=== PATIENT | female | born 1945 | race American Indian/Alaskan Native ===

== ENCOUNTER 2016-09-01 17:17 | Inpatient (IN) | payer MEDICARE, OTHER ==
[2016-09-01] MEDS ORDERED: Sodium Chloride 0.9% 500 ML IV ONE (17:54)
[2016-09-01] MEDS ORDERED: Sodium Chloride 0.9% 1,000 ML IV ONE (17:54)
[2016-09-01] MEDS ORDERED: Iohexol 240 (50 ml) PO STA (17:54)
--- NOTE | 2016-09-01 17:54 | C.PDOC ---
History Of Present Illness <Layla De La Rosa - Last Filed: 09/01/16 18:53> <Ventura Benavides - Last Filed: 09/01/16 21:48> 71 y/o female presents to the ED with complains of abdominal bloating and cramping x1 week, worsening. Pt also reports nausea, vomiting, diarrhea, last diarrhea days ago (worse with eating) and decreased urination due to low water intake. Denies fever, chills, or any other complaints. PSHx hysterectomy. ABD BLOATING, CRAMPING X 1 WEEK. WORSENING. +NVD, LAST DIARRHEA DAYS AGO. WORSE W EATING. NO FEVER. PSH HYST. DECR URINATING DUE TO LOW WATER INTAKE EXAM MILD DIST NONTOXIC HEENT MM DRY ABD SOFT NT ND NO R/G REMAINDER NEG (Layla De La Rosa) History Per: Patient History/Exam Limitations: no limitations Onset/Duration Of Symptoms: Days Current Symptoms Are (Timing): Still Present Severity: Moderate Location Of Pain/Discomfort: Diffuse Radiation Of Pain To:: None Quality Of Discomfort: Cramping Associated Symptoms: Nausea, Vomiting, Diarrhea. denies: Fever, Chest Pain Exacerbating Factors: Food Alleviating Factors: None Recent travel outside of the [place]: No <Layla De La Rosa - Last Filed: 09/01/16 18:53> <Sandra Benavidesradha - Last Filed: 09/01/16 21:48> Time Seen by Provider: 09/01/16 17:40 Chief Complaint (Nursing): Abdominal Pain Past Medical History Reviewed: Historical Data, Nursing Documentation, Vital Signs Family History: States: Unknown Family Hx - Social History Hx Tobacco Use: No Hx Alcohol Use: No Hx Substance Use: No - Immunization History Hx Tetanus Toxoid Vaccination: No Hx Influenza Vaccination: No Hx Pneumococcal Vaccination: No <Layla De La Rosa - Last Filed: 09/01/16 18:53> Review Of Systems Except As Marked, All Systems Reviewed And Found Negative. Constitutional: Negative for: Fever, Chills Gastrointestinal: Positive for: Nausea, Vomiting, Abdominal Pain, Diarrhea <Layla De La Rosa - Last Filed: 09/01/16 18:53> Physical Exam - Physical Exam Appears: Non-toxic, In Acute Distress (mild) Skin: Warm, Dry, No Rash Head: Atraumatic, Normacephalic Oral Mucosa: Dry Neck: Normal, Normal ROM, Supple Chest: Symmetrical Cardiovascular: Rhythm Regular, No Murmur Respiratory: Normal Breath Sounds, No Rales, No Rhonchi, No Wheezing Gastrointestinal/Abdominal: Normal Exam, Soft, No Tenderness, No Distention, No Guarding, No Rebound Extremity: Normal ROM Extremity: Bilateral: Atraumatic Neurological/Psych: Oriented x3, Normal Speech <Layla De La Rosa - Last Filed: 09/01/16 18:53> ED Course And Treatment - Laboratory Results Result Diagrams: 09/01/16 18:11 09/01/16 18:11 O2 Sat by Pulse Oximetry: 98 (room air) Pulse Ox Interpretation: Normal <RjLayla - Last Filed: 09/01/16 18:53> - Laboratory Results Result Diagrams: 09/01/16 18:11 09/01/16 20:58 Pulse Ox Interpretation: Normal <Ventura Benavides - Last Filed: 09/01/16 21:48> Medical Decision Making <RjLayla - Last Filed: 09/01/16 18:53> <Ventura Benavides - Last Filed: 09/01/16 21:48> Medical Decision Making: Plan: * CT abdomen * labs * UA * IV fluids * edvin story (Layla De La Rosa) ED OBSERVATION Date of observation admission: 09/01/16 Time of observation admission: 17:45 <Layla De La Rosa - Last Filed: 09/01/16 18:53> <Ventura Benavides - Last Filed: 09/01/16 21:48> - Observation admission statement Patient is being placed in observation because:: ABD PAIN, DEHYDRATION (Layla De La Rosa) - Goals of Observation Goals of observation are:: NEG ACUTE ABD; SX IMPROVE (Layla De La Rosa) - Progress Note Progress Note: 09/01/16 19:[address] FRANCIS CT, DISPO 09/01/16 18:53 (Layla De La Rosa) Disposition <Layla De La Rosa - Last Filed: 09/01/16 18:53> Discussed With : Breonna Hazel Comment: accepted the pt on his service and took over the care at 9:47 PM Counseled Patient/Family Regarding: Studies Performed, Diagnosis - Disposition Disposition Time: 19:00 <Ventura Benavides - Last Filed: 09/01/16 21:48> - Disposition Disposition: HOSPITALIZED Condition: FAIR - Clinical Impression Clinical Impression: Abdominal pain, SBO (small bowel obstruction), UTI (urinary tract infection) - Scribe Statement The provider has reviewed the documentation as recorded by the Scribe <Layla De La Rosa - Last Filed: 09/01/16 18:53> <Ventura Benavides - Last Filed: 09/01/16 21:48> - Scribe Statement Ricardo Wilson (Layla De La Rosa) Provider Attestation: All medical record entries made by the Scribe were at my direction and personally dictated by me. I have reviewed the chart and agree that the record accurately reflects my personal performance of the history, physical exam, medical decision making, and the department course for this patient. I have also personally directed, reviewed, and agree with the discharge instructions and disposition. (Layla De La Rosa) Decision To Admit <Layla De La Rosa - Last Filed: 09/01/16 18:53> - Pt Status Changed To: Hospital Disposition Of: Inpatient - Admit Certification Admit to Inpatient:: After my assessment, the patient will require hospitalization for at least two midnights. This is because of the severity of symptoms shown, intensity of services needed, and/or the medical risk in this patient being treated as an outpatient. - InPatient: Physician Admission Certification:: After my assessment, the patient will require hospitalization for at least two midnights. This is because of the severity of symptoms shown, intensity of services needed, and/or the medical risk in this patient being treated as an outpatient. - . Bed Request Type: Regular Admitting Physician: Breonna Hazel <Ventura Benavides - Last Filed: 09/01/16 21:48> - . Patient Diagnosis: SBO (small bowel obstruction), UTI (urinary tract infection), Abdominal pain
[2016-09-01] MEDS ORDERED: Sodium Chloride 0.9% 1,000 ML ONE ×2 (18:01→21:40)
[2016-09-01] MEDS ORDERED: Iohexol 240 (50 ml) ONE (18:01)
[2016-09-01 18:21] LABS: BASO % 0.5 % (0.0-2.0); EOS % 0.1 % (0.0-4.0); LYMPH % 18.9 % (20.0-40.0); MEAN CELL VOLUME 98.1 fL (81.0-99.0); MEAN CORPUSCULAR HEMOGLOBIN 33.4 pg (27.0-31.0); MEAN CORPUSCULAR HGB CONC 34.1 g/dL (33.0-37.0); MEAN PLATELET VOLUME 8.4 fL (7.2-11.7); MONO # 0.5 K/uL (0.0-0.8); MONO % 9.3 % (0.0-10.0); RED CELL DISTRIBUTION WIDTH 12.6 % (11.5-14.5); WHITE BLOOD COUNT 5.5 K/uL (4.8-10.8)
[2016-09-01 18:23] LABS: POTASSIUM 3.8 mmol/L (3.6-5.2)
[2016-09-01 18:26] LABS: CALCIUM 9.7 mg/dl (8.6-10.4)
[2016-09-01] MEDS ORDERED: Iodixanol 320 MG/ML 100 ML BOTTLE IV ONE (18:50)
[2016-09-01 21:16] LABS: POTASSIUM 3.9 mmol/L (3.6-5.2)
[2016-09-01 21:19] LABS: BILIRUBIN,TOTAL 0.9 mg/dL (0.2-1.3); TOTAL PROTEIN 7.2 g/dL (6.3-8.3)
[2016-09-01 21:32] LABS: RBC URINE 81 /hpf (0-3); URINE BACTERIA FEW (<OCC); URINE BILIRUBIN NEGATIVE (NEGATIVE); URINE BLOOD 3+ (NEGATIVE); URINE COLOR Yellow (YELLOW); URINE GLUCOSE (UA) NORMAL (Normal); URINE KETONE TRACE mg/dL (NEGATIVE); URINE LEUKOCYTE ESTERASE 1+ Leu/uL (Negative); URINE PROTEIN 2+ mg/dL (NEGATIVE); WBC URINE 24 /hpf (0-5)
[2016-09-01] MEDS ORDERED: Piperacillin/Tazobact 3.375 gm 100 ML IVPB STA (21:34)
[2016-09-01] MEDS ORDERED: Piperacillin/Tazobact 3.375 gm 100 ML IVPB ONE (21:40)
--- NOTE | 2016-09-01 22:56 | CP.PCM.CON ---
<Cr Martin - Last Filed: 09/01/16 22:52> History of Present Illness - History of Present Illness History of Present Illness: General Surgery Consult note for Dr. Moses CC: Abdominal pain for a week This is a 71F with no significant PMH and a PSH of an open hysterectomy for unkown reasons. She presents to the ED due to abdominal pain that she has been experiencing for over a week now. She reports that last week she had one episode of emesis that was red. She reports no episodes of emesis since then as well as no bowel movements since that time. She cannot recall the last time she passed flatus. She denies any past episodes similar to this. She denies fevers chills chest pain shortness of breath or any other alarming symptoms PMH: Stress incontinence PSH: Open hysterectomy All:NKDA Social: Denies etoh, tobacco, drugs Review of Systems - Constitutional Constitutional: Chills. absent: Anorexia, Fever - EENT Eyes: absent: Blind Spots, Blurred Vision Ears: absent: Ear Discharge, Tinnitus Nose/Mouth/Throat: absent: Nasal Discharge - Cardiovascular Cardiovascular: absent: Chest Pain, Dyspnea, Palpitations - Respiratory Respiratory: absent: Cough, Dyspnea - Gastrointestinal Gastrointestinal: Belching, Bloating, Change in Bowel Habits, Nausea. absent: Diarrhea, Vomiting - Genitourinary Genitourinary: absent: Dysuria - Integumentary Integumentary: absent: Rash, Skin Pain Past Patient History - Infectious Disease Hx of Infectious Diseases: None - Past Social History Smoking Status: Never Smoked - PSYCHIATRIC Hx Substance Use: No - SURGICAL HISTORY Hx Joint Replacement: Yes (right knee) - ANESTHESIA Hx Anesthesia: Yes Hx Anesthesia Reactions: No Hx Malignant Hyperthermia: No Meds Allergies/Adverse Reactions: Allergies Allergy/AdvReac Type Severity Reaction Status Date / Time No Known Allergies Allergy Verified 09/01/16 17:26 Physical Exam - Constitutional Appears: Non-toxic, No Acute Distress - Head Exam Head Exam: ATRAUMATIC, NORMOCEPHALIC - Eye Exam Eye Exam: EOMI, Normal appearance - ENT Exam ENT Exam: Mucous Membranes Moist - Respiratory Exam Respiratory Exam: NORMAL BREATHING PATTERN - Cardiovascular Exam Cardiovascular Exam: REGULAR RHYTHM - GI/Abdominal Exam GI & Abdominal Exam: Distended, Hernia, Tenderness. absent: Firm, Guarding, Rigid - Extremities Exam Extremities exam: Positive for: normal inspection - Neurological Exam Neurological exam: Alert - Psychiatric Exam Psychiatric exam: Normal Affect, Normal Mood - Skin Skin Exam: Dry, Normal Color Results - Vital Signs Recent Vital Signs: Last Vital Signs Temp 98 F 09/01/16 17:23 Pulse 98 H 09/01/16 17:23 Resp 20 09/01/16 17:23 BP 127/75 09/01/16 17:23 Pulse Ox 98 09/01/16 18:53 - Labs Result Diagrams: 09/01/16 18:11 09/01/16 20:58 - Imaging and Cardiology CT scan - abdomen Status: Image reviewed by me, Report reviewed by me Assessment & Plan - Assessment and Plan (Free Text) Assessment: This is a 71F with a small bowel obstruction NPO IVF NGT to suction Serial abdominal exams Continue medical management per primary team D/W Dr. Josué Martin PGY-6 <Jesse Moses B - Last Filed: 09/05/16 19:06> Results - Vital Signs Recent Vital Signs: Last Vital Signs Temp 98.5 F 09/05/16 07:30 Pulse 74 09/05/16 08:00 Resp 18 09/05/16 07:30 BP 147/83 09/05/16 07:30 Pulse Ox 98 09/05/16 07:30 - Labs Result Diagrams: 09/05/16 14:25 09/05/16 14:25 Labs: Laboratory Results - last 24 hr 09/05/16 09/05/16 14:25 14:25 WBC 4.5 L RBC 4.21 Hgb 14.2 Hct 41.3 MCV 98.1 MCH 33.8 H MCHC 34.4 RDW 13.1 Plt Count 244 MPV 8.6 Neut % (Auto) 76.0 H Lymph % (Auto) 13.6 L [place] % (Auto) 8.9 Eos % (Auto) 1.2 Baso % (Auto) 0.3 Neut # 3.4 Lymph # 0.6 L [place] # 0.4 Eos # 0.1 Baso # 0.0 Sodium 133 Potassium 3.9 Chloride 98 Carbon Dioxide 26 Anion Gap 13 BUN 3 L Creatinine 1.1 Est GFR ( Amer) 59 Est GFR (Non-Af Amer) 49 Random Glucose 125 H Calcium 8.9 Total Bilirubin 0.8 AST 23 ALT 23 Alkaline Phosphatase 56 Total Protein 7.3 Albumin 3.5 Globulin 3.8 Albumin/Globulin Ratio 0.9 L Attending/Attestation - Attestation I have personally seen and examined this patient.: Yes I have fully participated in the care of the patient.: Yes I have reviewed all pertinent clinical information: Yes Notes (Text): 09/05/16 19:03 Pt was seen and examined at bedside on 09/02/16 Agree with above note and assessment Pt with PSBO due to Adhesions Serial Abdominal exam AXR in am Plan d.w pt in detail. C.w current mx
[2016-09-01] MEDS: Sodium Chloride 0.9% 1,000 ML IV SCH (23:11)
[2016-09-01] MEDS ORDERED: Pantoprazole 80 MG in Sodium Chloride 0.9% 100 ML IVP SCH (23:15)
--- NOTE | 2016-09-02 08:28 | CT ---
PROCEDURE: CT Abdomen and Pelvis with contrast HISTORY: abd pain VOMITING DIARRHEA COMPARISON: None. TECHNIQUE: Contrast dose: 100 mL Visipaque 320 Radiation dose: Total exam DLP = 328.71 mGy-cm. This CT exam was performed using one or more of the following dose reduction techniques: Automated exposure control, adjustment of the mA and/or kV according to patient size, and/or use of iterative reconstruction technique. FINDINGS: LOWER THORAX: Unremarkable. LIVER: Diffusely diminished attenuation consistent with fatty infiltration. Several rounded low-attenuation masses are noted, largest in the posterior right hepatic lobe, subcapsular, measuring 1.5 cm. Nonspecific. Possible cyst. No biliary dilatation. GALLBLADDER AND BILE DUCTS: Cholelithiasis. No mural thickening. Minimal pericholecystic fluid, nonspecific. This may reflect mild ascites. PANCREAS: Unremarkable. No gross lesion or ductal dilatation. SPLEEN: Unremarkable. ADRENALS: Unremarkable. No mass. KIDNEYS AND URETERS: Atrophic left kidney with left hydronephrosis and hydroureter. Etiology of ureteral obstruction is unclear from this examination. Consider mass or stricture. Multiple low-density right renal masses, likely cysts. The largest 2.7 cm in upper pole. Two lower pole right renal nonobstructing calculi, 5 mm and 7 mm, respectively. VASCULATURE: Unremarkable. No aortic aneurysm. BOWEL: Mechanical small-bowel obstruction. High-grade. Point of obstruction not clearly identified. Collapsed distal small bowel noted. Colon is collapsed. APPENDIX: Not identified. No secondary findings. PERITONEUM: Mild ascites. LYMPH NODES: Unremarkable. No enlarged lymph nodes. BLADDER: Unremarkable. REPRODUCTIVE: Status post hysterectomy BONES: No acute fracture. OTHER FINDINGS: None. IMPRESSION: Mechanical small-bowel obstruction. Point of obstruction not clearly identified. Cholelithiasis without clear evidence of cholecystitis. Fatty liver. Mild ascites. Atrophic left kidney with left hydroureteronephrosis. Etiology of obstruction not evident from this examination. Nonobstructing right renal calculi. Multiple right renal low-density masses, likely cysts. Several low-density hepatic masses, nonspecific. Preliminary interpretation of this examination was reported by Myrio at 8:37 p.m. on 09/01/2016. There is concurrence of this report with the preliminary interpretation.
--- NOTE | 2016-09-02 08:46 | CP.PCM.CON ---
History of Present Illness - History of Present Illness History of Present Illness: Asked by Dr. Hazel for a GI consultation on this patient CC: abdominal pain, nausea HPI: This is a 71 year old female with h/o prior hysterectomy, knee replacement, urinary stress incontinence who presents with complaint of abdominal pain, nausea and vomiting. The patient was recently on vacation in [place] and developed sudden onset abdominal pain associated with nausea/vomiting/diarrhea which lasted for 24-48 hours. She describes vomitus as dark colored, no bloody diarrhea. She maintained soft diet and symptoms slowly improved. She returned back home 2 days ago and has been having progressive diffuse crampy abdominal pain associated with nausea. She has not had a BM in 1 week reportedly. She reports colonoscopy last year showing polyp. She had CT showing SBO. NGT placed and 600cc non bloody output overnight, although minimal this morning. PMHx/PSHx: as above Medications: vesicare Allergies: NKDA ROS: as per HPI otherwise negative in detail SH: drinks wine occasionally, no tobacco or illicit drug use FH: mother with cervical cancer Review of Systems - Constitutional Constitutional: absent: Chills, Fever - Cardiovascular Cardiovascular: absent: Chest Pain - Respiratory Respiratory: absent: Cough, Dyspnea - Gastrointestinal Gastrointestinal: As Per HPI - Genitourinary Genitourinary: Urinary Urgency - Musculoskeletal Musculoskeletal: absent: Atrophy, Back Pain - Integumentary Integumentary: absent: Pruritus, Rash - Psychiatric Psychiatric: absent: Anxiety, Depression - Hematologic/Lymphatic Hematologic: absent: Easy Bleeding, Easy Bruising Past Patient History - Infectious Disease Hx of Infectious Diseases: None - Past Medical History & Family History Past Medical History?: No - Past Social History Smoking Status: Never Smoked - MUSCULOSKELETAL/RHEUMATOLOGICAL Hx Musculoskeletal Disorders: Yes Hx Falls: Yes - PSYCHIATRIC Hx Substance Use: No - SURGICAL HISTORY Hx Surgeries: Yes Hx Hysterectomy: Yes (2002) Hx Joint Replacement: Yes (right knee 2015) - ANESTHESIA Hx Anesthesia: Yes Hx Anesthesia Reactions: No Hx Malignant Hyperthermia: No Has any member of the family had a problem w/ anesthesia?: No Meds Allergies/Adverse Reactions: Allergies Allergy/AdvReac Type Severity Reaction Status Date / Time No Known Allergies Allergy Verified 09/01/16 17:26 - Medications Medications: Current Medications Sodium Chloride (Sodium Chloride 0.9%) 1,000 mls @ 100 mls/hr IV .Q10H LIN Last Admin: 09/01/16 23:11 Dose: 100 mls/hr Pantoprazole Sodium (Protonix Inj) 40 mg IVP DAILY [facility] Physical Exam - Constitutional Appears: No Acute Distress - Eye Exam Eye Exam: absent: Scleral icterus - ENT Exam Additional comments: +NGT in place - Respiratory Exam Respiratory Exam: Clear to Auscultation Bilateral - Cardiovascular Exam Cardiovascular Exam: +S1, +S2 - GI/Abdominal Exam Additional comments: abdomen slightly distended, bowel sounds present, mild diffuse TTP without rebound or guarding, no palpable mass - Extremities Exam Extremities exam: Negative for: pedal edema - Neurological Exam Neurological exam: Alert, Oriented x3 - Skin Skin Exam: Dry Results - Vital Signs Recent Vital Signs: Last Vital Signs Temp 97.8 F 09/02/16 02:02 Pulse 68 09/02/16 04:00 Resp 20 09/02/16 02:02 BP 160/89 H 09/02/16 02:02 Pulse Ox 98 09/02/16 02:02 - Labs Result Diagrams: 09/01/16 18:11 09/01/16 20:58 Labs: Laboratory Results - last 24 hr 09/01/16 22:55 Gastric Occult Blood Postive H Assessment & Plan - Assessment and Plan (Free Text) Assessment: This is a 71 year old female with h/o prior hysterectomy who is admitted with abdominal pain, nausea and vomiting. She is admitted for small bowel obstruction, last BM 1 week ago. Plan: Continue supportive measures, NPO Monitor NGT output D/C PPI gtt, no evidence of overt GI blood loss, can switch to once daily PPI Monitor H/H IVF hydration, pain control, antiemetic as needed Follow up official CT read Follow up surgery recommendations
[2016-09-02] MEDS: Nitroglycerin 2% Ointment Foilpak UD TOP SCH ×2 (11:23→17:50)
[2016-09-02] MEDS: Sodium Chloride 0.9% 1,000 ML IV SCH (11:24)
--- NOTE | 2016-09-02 11:57 | RAD ---
HISTORY: sbo COMPARISON: CT abdomen/pelvis 09/01/2016 FINDINGS: BOWEL: Dilated loops of small bowel consistent with mechanical bowel obstruction. No gas identified within colon. Nasogastric tube seen in left upper quadrant of abdomen. Excreted contrast in urinary bladder. BONES: Normal. OTHER FINDINGS: None. IMPRESSION: Findings consistent with mechanical small bowel obstruction.
--- NOTE | 2016-09-02 15:03 | CP.PCM.HP ---
History of Present Illness - History of Present Illness History of Present Illness: 71-year-old female patient with past medical history of stress incontinence, who presented to the ER due to abdominal pain that she has been expressing for over a week now. Reports that last week she had one episode of emesis that was red. Patient reports no emesis since then as well as no bowel movement since that time. Patient cannot recall the last time she passed flatus. Denies any episodes similar to these. Denies fever, chills, chest pain, shortness of breath and any other symptoms for Present on Admission - Present on Admission Any Indicators Present on Admission: No Past Patient History - Infectious Disease Hx of Infectious Diseases: None - Past Medical History & Family History Past Medical History?: No - Past Social History Smoking Status: Never Smoked - MUSCULOSKELETAL/RHEUMATOLOGICAL Hx Musculoskeletal Disorders: Yes Hx Falls: Yes - PSYCHIATRIC Hx Substance Use: No - SURGICAL HISTORY Hx Surgeries: Yes Hx Hysterectomy: Yes (2002) Hx Joint Replacement: Yes (right knee 2015) - ANESTHESIA Hx Anesthesia: Yes Hx Anesthesia Reactions: No Hx Malignant Hyperthermia: No Has any member of the family had a problem w/ anesthesia?: No Meds Allergies/Adverse Reactions: Allergies Allergy/AdvReac Type Severity Reaction Status Date / Time No Known Allergies Allergy Verified 09/01/16 17:26 Physical Exam - Constitutional Appears: Well - Head Exam Head Exam: ATRAUMATIC, NORMAL INSPECTION, NORMOCEPHALIC - Eye Exam Eye Exam: EOMI, Normal appearance, PERRL Pupil Exam: NORMAL ACCOMODATION, PERRL - ENT Exam ENT Exam: Mucous Membranes Moist, Normal Exam - Neck Exam Neck exam: Positive for: Normal Inspection - Respiratory Exam Respiratory Exam: Decreased Breath Sounds - Cardiovascular Exam Cardiovascular Exam: REGULAR RHYTHM, +S1, +S2 - GI/Abdominal Exam GI & Abdominal Exam: Diminished Bowel Sounds, Soft - Rectal Exam Rectal Exam: Deferred Results - Vital Signs Recent Vital Signs: Last Vital Signs Temp 98.7 F 09/02/16 07:42 Pulse 79 09/02/16 07:42 Resp 20 09/02/16 07:42 BP 183/91 H 09/02/16 07:42 Pulse Ox 97 09/02/16 07:42 - Labs Result Diagrams: 09/05/16 14:25 09/05/16 14:25 Labs: Laboratory Results - last 24 hr 05/25/17 22:55 Gastric Occult Blood Postive H Assessment & Plan (1) Abdominal pain Status: Acute (2) GI bleed Status: Acute (3) SBO (small bowel obstruction) Status: Acute (4) UTI (urinary tract infection) Status: Acute (5) Wound check, abscess Status: Acute - Assessment and Plan (Free Text) Plan: Consult with general surgeon Consult GI CT scan of abdomen negative for acute pathology Monitor NGT output Monitor H/H IV fluid Protonix
[2016-09-02] MEDS: Potassium Ch 20mEq in D5-1/2NS 1,000 ML IV SCH (17:48)
[2016-09-03] MEDS: Nitroglycerin 2% Ointment Foilpak UD TOP SCH ×4 (00:30→18:12)
[2016-09-03] MEDS: Potassium Ch 20mEq in D5-1/2NS 1,000 ML IV SCH (05:11)
--- NOTE | 2016-09-03 08:01 | CP.PCM.PN ---
<Kristen Banegas - Last Filed: 09/03/16 09:47> Subjective - Date & Time of Evaluation Date of Evaluation: 09/03/16 Time of Evaluation: 07:57 - Subjective Subjective: Gastroenterology Fellow/PGY4 Progress Note Patient notes improved abdominal pain and distension. Soft bowel movement yesterday. 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 A 12-point review of systems negative except for as above. Objective - Vital Signs/Intake and Output Vital Signs (last 24 hours): Temp Pulse Resp BP Pulse Ox 98.2 F 66 20 157/90 H 97 09/02/16 23:45 09/03/16 05:03 09/03/16 05:03 09/03/16 05:03 09/02/16 23:45 Intake and Output: 09/03/16 09/03/16 06:59 18:59 Intake Total 800 Output Total 52 Balance 748 - Medications Medications: Current Medications Amlodipine Besylate (Norvasc) 5 mg PO DAILY [facility] Home Med (Solifenacin Succinate [Vesicare]) 5 mg PO DAILY [facility] Potassium Chloride/Dextrose/Sod Cl (Potassium Chl 20 Meq In D5-1/2ns) 1,000 mls @ 100 mls/hr IV .Q10H [facility] Last Admin: 09/03/16 05:11 Dose: 100 mls/hr Nitroglycerin (Nitro-Bid 2% Oint) 1 ea TOP Q6 [facility] Last Admin: 09/03/16 05:10 Dose: 1 ea Pantoprazole Sodium (Protonix Inj) 40 mg IVP DAILY [facility] Last Admin: 09/02/16 10:58 Dose: 40 mg - Constitutional Appears: Non-toxic, No Acute Distress - Head Exam Head Exam: ATRAUMATIC, NORMOCEPHALIC - Eye Exam Eye Exam: EOMI, PERRL Pupil Exam: NORMAL ACCOMODATION, PERRL. absent: Miosis, Mydriatic - ENT Exam ENT Exam: Mucous Membranes Moist, Normal Oropharynx Additional comments: NGT in place R nares - Respiratory Exam Respiratory Exam: Clear to Ausculation Bilateral. absent: Rales, Rhonchi, Wheezes - Cardiovascular Exam Cardiovascular Exam: RRR, +S1, +S2. absent: Gallop, Rubs - GI/Abdominal Exam GI & Abdominal Exam: Soft, Normal Bowel Sounds. absent: Distended, Firm, Guarding, Rigid, Tenderness, Organomegaly, Rebound - Extremities Exam Extremities Exam: Full ROM. absent: Pedal Edema - Neurological Exam Neurological Exam: Alert, Awake - Psychiatric Exam Psychiatric exam: Normal Affect, Normal Mood - Skin Skin Exam: Dry, Intact, Normal Color, Warm Assessment and Plan - Assessment and Plan (Free Text) Assessment: 71 year old female with history of hysterectomy presenting with abdominal pain, constipation, nausea and vomiting. Active treatment of high grade small bowel obstruction with collapsed distal small bowel and colon on CT A/P. Plan: >minimal NGT output overnight >bowel movement yesterday >resolved abdominal pain and distension >ordered abdominal flat plate >surgery managing- follow up diet recommendation >supportive care: antiemetics, pain control, IVFs >outpatient follow up with GI for outpatient colonoscopy <Allen Ortez - Last Filed: 09/03/16 09:55> Objective - Vital Signs/Intake and Output Vital Signs (last 24 hours): Temp Pulse Resp BP Pulse Ox 97 F L 69 20 150/85 98 09/03/16 07:00 09/03/16 07:00 09/03/16 07:00 09/03/16 07:00 09/03/16 07:00 Intake and Output: 09/03/16 09/03/16 06:59 18:59 Intake Total 800 Output Total 52 Balance 748 - Medications Medications: Current Medications Amlodipine Besylate (Norvasc) 5 mg PO DAILY [facility] Home Med (Solifenacin Succinate [Vesicare]) 5 mg PO DAILY [facility] Potassium Chloride/Dextrose/Sod Cl (Potassium Chl 20 Meq In D5-1/2ns) 1,000 mls @ 100 mls/hr IV .Q10H [facility] Last Admin: 09/03/16 05:11 Dose: 100 mls/hr Nitroglycerin (Nitro-Bid 2% Oint) 1 ea TOP Q6 [facility] Last Admin: 09/03/16 05:10 Dose: 1 ea Pantoprazole Sodium (Protonix Inj) 40 mg IVP DAILY [facility] Last Admin: 09/02/16 10:58 Dose: 40 mg Attending/Attestation - Attestation I have personally seen and examined this patient.: Yes I have fully participated in the care of the patient.: Yes I have reviewed all pertinent clinical information, including history, physical exam and plan: Yes Notes (Text): 09/03/16 09:53 I have seen and examined patient with GI fellow. No acute events overnight, minimal output via NGT during prior nursing shift. Patient had one soft bowel movement yesterday. She denies abdominal pain, nausea, vomiting, fever/chills. Review of vitals from today shows elevated BP. Abdominal pain, nausea, vomiting - small bowel obstruction History of hysterectomy - NPO - Continue with NGT suction - Repeat abdominal XR ordered, follow up results - Further plan as per surgical team - No planned GI intervention, will sign off case. Patient would certainly benefit from outpatient GI follow up with colonoscopy after acute obstructive issues have resolved. Please reconsult as necessary, thank you.
[2016-09-03] MEDS ORDERED: Home Med 1 UNIT (Solifenacin Succinate [Vesicare] 5 MG) PO SCH (10:00)
--- NOTE | 2016-09-03 10:49 | CP.PCM.PN ---
<MervatJana - Last Filed: 09/03/16 13:30> Subjective - Date & Time of Evaluation Date of Evaluation: 09/03/16 Time of Evaluation: 07:00 - Subjective Subjective: GENERAL SURGERY PROGRESS NOTE FOR DR. MOSES Patient seen and examined at bedside. She reports a BM yesterday evening and a loose BM this AM. She is also passing flatus. She states that she feels much better, her pain is gone, and she no longer feels bloated. Objective - Vital Signs/Intake and Output Vital Signs (last 24 hours): Temp Pulse Resp BP Pulse Ox 97 F L 69 20 150/85 98 09/03/16 07:00 09/03/16 07:00 09/03/16 07:00 09/03/16 07:00 09/03/16 07:00 Intake and Output: 09/03/16 09/03/16 06:59 18:59 Intake Total 800 Output Total 52 Balance 748 - Medications Medications: Current Medications Amlodipine Besylate (Norvasc) 5 mg PO DAILY [facility] Last Admin: 09/03/16 10:02 Dose: Not Given Home Med (Solifenacin Succinate [Vesicare]) 5 mg PO DAILY [facility] Potassium Chloride/Dextrose/Sod Cl (Potassium Chl 20 Meq In D5-1/2ns) 1,000 mls @ 100 mls/hr IV .Q10H [facility] Last Admin: 09/03/16 05:11 Dose: 100 mls/hr Nitroglycerin (Nitro-Bid 2% Oint) 1 ea TOP Q6 [facility] Last Admin: 09/03/16 05:10 Dose: 1 ea Pantoprazole Sodium (Protonix Inj) 40 mg IVP DAILY [facility] Last Admin: 09/03/16 10:02 Dose: 40 mg - Constitutional Appears: Non-toxic, No Acute Distress - Head Exam Head Exam: ATRAUMATIC, NORMAL INSPECTION - Respiratory Exam Respiratory Exam: NORMAL BREATHING PATTERN. absent: Respiratory Distress - Cardiovascular Exam Cardiovascular Exam: +S1, +S2 - GI/Abdominal Exam GI & Abdominal Exam: Soft. absent: Distended (resolved), Firm, Guarding, Rigid , Tenderness, Rebound Additional comments: NG tube in place on low continuous suction - Neurological Exam Neurological Exam: Alert, Awake, Oriented x3 - Psychiatric Exam Psychiatric exam: Normal Affect, Normal Mood - Skin Skin Exam: Dry, Normal Color, Warm Assessment and Plan - Assessment and Plan (Free Text) Assessment: 71yo F with small bowel obstruction, resolved - Afebrile, VSS - NG tube in place on low continuous suction - GI plans for outpatient colonoscopy - Abd flat plate done this AM - Removal of NG tube today - Started on CLD - Discussed plan with Dr. Josué Crowell PGY-2 <Jesse Moses - Last Filed: 09/05/16 19:11> Objective - Vital Signs/Intake and Output Vital Signs (last 24 hours): Temp Pulse Resp BP Pulse Ox 98.5 F 74 18 147/83 98 09/05/16 07:30 09/05/16 08:00 09/05/16 07:30 09/05/16 07:30 09/05/16 07:30 - Labs Labs: 09/05/16 14:25 09/05/16 14:25 Attending/Attestation - Attestation I have personally seen and examined this patient.: Yes I have fully participated in the care of the patient.: Yes I have reviewed all pertinent clinical information, including history, physical exam and plan: Yes Notes (Text): 09/05/16 19:11 Pt was seen and examined at bedside on 09/03/16 Agree with above note and assessment Pt with Resolving PSBO DC NG tube Serial Abdominal exam Plan d.w pt in detail. C.w current mx
--- NOTE | 2016-09-03 12:15 | RAD ---
HISTORY: evaluate SBO COMPARISON: September 02, 2016. FINDINGS: BOWEL: Interval improvement in previously identified small bowel. Dilated loops of small bowel apparent on the prior study have decreased. Contrast now identified throughout nondistended colon. BONES: Normal. OTHER FINDINGS: None. IMPRESSION: Interval improvement/resolution of small bowel obstruction.
[2016-09-03 13:53] LABS: BASO % 0.4 % (0.0-2.0); HEMATOCRIT 41.2 % (34.0-47.0); LYMPH # 0.8 K/uL (1.0-4.3); LYMPH % 16.7 % (20.0-40.0); MEAN CELL VOLUME 99.5 fL (81.0-99.0); MEAN CORPUSCULAR HEMOGLOBIN 33.3 pg (27.0-31.0); MEAN CORPUSCULAR HGB CONC 33.4 g/dL (33.0-37.0); MEAN PLATELET VOLUME 8.6 fL (7.2-11.7); MONO # 0.5 K/uL (0.0-0.8); NRBC % 0.1 % (0.0-2.0); RED CELL DISTRIBUTION WIDTH 12.9 % (11.5-14.5); WHITE BLOOD COUNT 4.6 K/uL (4.8-10.8)
--- NOTE | 2016-09-03 13:54 | CP.PCM.PN ---
Subjective - Date & Time of Evaluation Date of Evaluation: 09/03/16 Time of Evaluation: 11:00 - Subjective Subjective: clinically same Objective - Vital Signs/Intake and Output Vital Signs (last 24 hours): Temp Pulse Resp BP Pulse Ox 97 F L 69 20 150/85 98 09/03/16 07:00 09/03/16 07:00 09/03/16 07:00 09/03/16 07:00 09/03/16 07:00 Intake and Output: 09/03/16 09/03/16 06:59 18:59 Intake Total 800 940 Output Total 52 Balance 748 940 - Medications Medications: Current Medications Amlodipine Besylate (Norvasc) 5 mg PO DAILY [facility] Last Admin: 09/03/16 12:19 Dose: 5 mg Home Med (Solifenacin Succinate [Vesicare]) 5 mg PO DAILY [facility] Potassium Chloride/Dextrose/Sod Cl (Potassium Chl 20 Meq In D5-1/2ns) 1,000 mls @ 100 mls/hr IV .Q10H [facility] Last Admin: 09/03/16 05:11 Dose: 100 mls/hr Nitroglycerin (Nitro-Bid 2% Oint) 1 ea TOP Q6 [facility] Last Admin: 09/03/16 12:18 Dose: 1 ea Pantoprazole Sodium (Protonix Inj) 40 mg IVP DAILY [facility] Last Admin: 09/03/16 10:02 Dose: 40 mg - Constitutional Appears: Well - Head Exam Head Exam: ATRAUMATIC, NORMAL INSPECTION, NORMOCEPHALIC - Eye Exam Eye Exam: EOMI, Normal appearance, PERRL Pupil Exam: NORMAL ACCOMODATION, PERRL - ENT Exam ENT Exam: Mucous Membranes Moist, Normal Exam - Neck Exam Neck Exam: Full ROM, Normal Inspection. absent: Lymphadenopathy - Respiratory Exam Respiratory Exam: Decreased Breath Sounds - Cardiovascular Exam Cardiovascular Exam: REGULAR RHYTHM, +S1, +S2 - GI/Abdominal Exam GI & Abdominal Exam: Soft, Diminished Bowel Sounds - Rectal Exam Rectal Exam: Deferred Assessment and Plan (1) Abdominal pain Status: Acute (2) GI bleed Status: Acute (3) SBO (small bowel obstruction) Status: Acute (4) UTI (urinary tract infection) Status: Acute (5) Wound check, abscess Status: Acute - Assessment and Plan (Free Text) Plan: Follow-up with general surgeon Follow-up with GI Norvasc Potassium chloride IV fluid Nitroglycerin
[2016-09-03 14:01] LABS: CHLORIDE 101 mmol/L (98-107)
[2016-09-03 14:02] LABS: POTASSIUM 3.8 mmol/L (3.6-5.2); SODIUM 133 mmol/L (132-148)
[2016-09-03 14:04] LABS: ALB/GLOB RATIO 0.9 (1.0-2.1); ALKALINE PHOSPHATASE 41 U/L (38-126); AST/SGOT 29 U/L (14-36); BILIRUBIN,TOTAL 0.8 mg/dL (0.2-1.3); BLOOD UREA NITROGEN 7 mg/dL (7-17); CARBON DIOXIDE 23 mmol/L (22-30); GFR AFRICAN-AMERICAN > 60; TOTAL PROTEIN 6.5 g/dL (6.3-8.3)
[2016-09-03 14:05] LABS: ALT/SGPT 14 U/L (9-52); CALCIUM 7.9 mg/dl (8.6-10.4); GLUCOSE,RANDOM 151 mg/dL (65-105)
[2016-09-04] MEDS: Nitroglycerin 2% Ointment Foilpak UD TOP SCH ×5 (06:00→23:41)
--- NOTE | 2016-09-04 09:49 | CP.PCM.PN ---
Addendum entered and electronically signed by Jana Crowell DO 09/04/16 10:45 : If tolerates full liquids, clear for DC home later today from surgical standpoint. Patient to be discharged home on full liquids. Original Note: <Jana Crowell - Last Filed: 09/04/16 09:49> Subjective - Date & Time of Evaluation Date of Evaluation: 09/04/16 Time of Evaluation: 07:00 - Subjective Subjective: GENERAL SURGERY PROGRESS NOTE FOR DR. MOSES Patient seen and examined at bedside. NG tube was removed yesterday. She reports that her pain is gone and she had a BM yesterday. She is still passing flatus. She is tolerating her clear liquid diet and denies nausea or vomiting. Objective - Vital Signs/Intake and Output Vital Signs (last 24 hours): Temp Pulse Resp BP Pulse Ox 98.1 F 80 20 159/80 H 96 09/04/16 08:10 09/04/16 08:10 09/04/16 08:10 09/04/16 08:10 09/04/16 08:10 Intake and Output: 09/04/16 09/04/16 06:59 18:59 Intake Total 800 Balance 800 - Medications Medications: Current Medications Amlodipine Besylate (Norvasc) 5 mg PO DAILY [facility] Last Admin: 09/03/16 12:19 Dose: 5 mg Home Med (Solifenacin Succinate [Vesicare]) 5 mg PO DAILY [facility] Potassium Chloride/Dextrose/Sod Cl (Potassium Chl 20 Meq In D5-1/2ns) 1,000 mls @ 100 mls/hr IV .Q10H [facility] Last Admin: 09/03/16 05:11 Dose: 100 mls/hr Nitroglycerin (Nitro-Bid 2% Oint) 1 ea TOP Q6 [facility] Last Admin: 09/04/16 00:00 Dose: 1 ea Pantoprazole Sodium (Protonix Inj) 40 mg IVP DAILY [facility] Last Admin: 09/03/16 10:02 Dose: 40 mg - Labs Labs: 09/03/16 13:47 09/03/16 13:47 - Constitutional Appears: Non-toxic, No Acute Distress - Head Exam Head Exam: ATRAUMATIC, NORMAL INSPECTION - Respiratory Exam Respiratory Exam: NORMAL BREATHING PATTERN. absent: Respiratory Distress - Cardiovascular Exam Cardiovascular Exam: +S1, +S2 - GI/Abdominal Exam GI & Abdominal Exam: Soft. absent: Distended, Firm, Guarding, Rigid, Tenderness , Rebound - Neurological Exam Neurological Exam: Alert, Awake, Oriented x3 - Psychiatric Exam Psychiatric exam: Normal Affect, Normal Mood - Skin Skin Exam: Normal Color, Warm Assessment and Plan - Assessment and Plan (Free Text) Assessment: 71yo F with small bowel obstruction, resolved - Afebrile, VSS - NG tube removed yesterday - Tolerated CLD - Advanced to full liquids for breakfast this AM - Discussed plan with Dr. Josué Crowell PGY-2 <Jesse Moses - Last Filed: 09/05/16 19:14> Objective - Vital Signs/Intake and Output Vital Signs (last 24 hours): Temp Pulse Resp BP Pulse Ox 98.5 F 74 18 147/83 98 09/05/16 07:30 09/05/16 08:00 09/05/16 07:30 09/05/16 07:30 09/05/16 07:30 - Labs Labs: 09/05/16 14:25 09/05/16 14:25 Attending/Attestation - Attestation I have personally seen and examined this patient.: Yes I have fully participated in the care of the patient.: Yes I have reviewed all pertinent clinical information, including history, physical exam and plan: Yes Notes (Text): 09/05/16 19:14 Pt was seen and examined at bedside on 09/04/16 Agree with above note and assessment Pt with Resolved PSBO Pt can be DC home on Thick liquid diet Plan d.w pt in detail. f/U as out pt
[2016-09-04] MEDS: Potassium Ch 20mEq in D5-1/2NS 1,000 ML IV SCH ×2 (11:57→18:04)
--- NOTE | 2016-09-04 13:26 | CP.PCM.PN ---
Subjective - Date & Time of Evaluation Date of Evaluation: 09/04/16 Time of Evaluation: 12:40 - Subjective Subjective: clinically same Objective - Vital Signs/Intake and Output Vital Signs (last 24 hours): Temp Pulse Resp BP Pulse Ox 98.1 F 80 20 159/80 H 96 09/04/16 08:10 09/04/16 08:10 09/04/16 08:10 09/04/16 08:10 09/04/16 08:10 Intake and Output: 09/04/16 09/04/16 06:59 18:59 Intake Total 800 Balance 800 - Medications Medications: Current Medications Amlodipine Besylate (Norvasc) 5 mg PO DAILY [facility] Last Admin: 09/04/16 10:11 Dose: 5 mg Home Med (Solifenacin Succinate [Vesicare]) 5 mg PO DAILY [facility] Potassium Chloride/Dextrose/Sod Cl (Potassium Chl 20 Meq In D5-1/2ns) 1,000 mls @ 100 mls/hr IV .Q10H [facility] Last Admin: 09/04/16 11:57 Dose: 100 mls/hr Nitroglycerin (Nitro-Bid 2% Oint) 1 ea TOP Q6 [facility] Last Admin: 09/04/16 11:56 Dose: 1 ea Pantoprazole Sodium (Protonix Inj) 40 mg IVP DAILY [facility] Last Admin: 09/04/16 10:12 Dose: 40 mg - Labs Labs: 09/03/16 13:47 09/03/16 13:47 - Constitutional Appears: Well - Head Exam Head Exam: ATRAUMATIC, NORMAL INSPECTION, NORMOCEPHALIC - Eye Exam Eye Exam: EOMI, Normal appearance, PERRL Pupil Exam: NORMAL ACCOMODATION, PERRL - ENT Exam ENT Exam: Mucous Membranes Moist, Normal Exam - Neck Exam Neck Exam: Full ROM, Normal Inspection. absent: Lymphadenopathy - Respiratory Exam Respiratory Exam: Decreased Breath Sounds - Cardiovascular Exam Cardiovascular Exam: REGULAR RHYTHM, +S1, +S2 - GI/Abdominal Exam GI & Abdominal Exam: Soft, Diminished Bowel Sounds - Rectal Exam Rectal Exam: Deferred
[2016-09-04 13:58] LABS: BASO % 0.3 % (0.0-2.0); EOS % 1.1 % (0.0-4.0); HEMATOCRIT 39.9 % (34.0-47.0); LYMPH # 0.6 K/uL (1.0-4.3); LYMPH % 14.7 % (20.0-40.0); MEAN CELL VOLUME 98.3 fL (81.0-99.0); MEAN CORPUSCULAR HEMOGLOBIN 33.5 pg (27.0-31.0); MEAN CORPUSCULAR HGB CONC 34.1 g/dL (33.0-37.0); MEAN PLATELET VOLUME 8.5 fL (7.2-11.7); MONO # 0.4 K/uL (0.0-0.8); MONO % 9.4 % (0.0-10.0); NRBC % 0.1 % (0.0-2.0); RED CELL DISTRIBUTION WIDTH 12.8 % (11.5-14.5); WHITE BLOOD COUNT 4.4 K/uL (4.8-10.8)
[2016-09-04 14:10] LABS: POTASSIUM 3.3 mmol/L (3.6-5.2)
[2016-09-04 14:12] LABS: BILIRUBIN,TOTAL 0.8 mg/dL (0.2-1.3)
[2016-09-04 14:13] LABS: CALCIUM 8.3 mg/dl (8.6-10.4); TOTAL PROTEIN 6.5 g/dL (6.3-8.3)
[2016-09-05] MEDS: Potassium Ch 20mEq in D5-1/2NS 1,000 ML IV SCH (01:03)
[2016-09-05] MEDS: Nitroglycerin 2% Ointment Foilpak UD TOP SCH ×2 (05:48→12:26)
[2016-09-05] MEDS ORDERED: Potassium Chloride 10 mEq ER Tab PO SCH (07:30)
[2016-09-05 07:50] VITALS: BP 147/83; RESP 18; TEMP 98.5; O2SAT 98
[2016-09-05 08:27] VITALS: PULSE 74
--- NOTE | 2016-09-05 11:31 | CP.PCM.PN ---
<Jana Crowell - Last Filed: 09/05/16 11:32> Subjective - Date & Time of Evaluation Date of Evaluation: 09/05/16 Time of Evaluation: 07:00 - Subjective Subjective: GENERAL SURGERY PROGRESS NOTE FOR DR. MOSES Patient seen and examined at bedside. She is sitting up in bed eating breakfast. She has no pain at all. She is tolerating full liquids, denies nausea or vomiting. She is still hungry. She is passing flatus and having bowel movements. She is asking when she can go home. Objective - Vital Signs/Intake and Output Vital Signs (last 24 hours): Temp Pulse Resp BP Pulse Ox 98.5 F 74 18 147/83 98 09/05/16 07:30 09/05/16 08:00 09/05/16 07:30 09/05/16 07:30 09/05/16 07:30 Intake and Output: 09/05/16 09/05/16 06:59 18:59 Intake Total 800 Balance 800 - Medications Medications: Current Medications Amlodipine Besylate (Norvasc) 5 mg PO DAILY [facility] Last Admin: 09/05/16 09:24 Dose: 5 mg Home Med (Solifenacin Succinate [Vesicare]) 5 mg PO DAILY [facility] Potassium Chloride/Dextrose/Sod Cl (Potassium Chl 20 Meq In D5-1/2ns) 1,000 mls @ 100 mls/hr IV .Q10H [facility] Last Admin: 09/05/16 01:03 Dose: 100 mls/hr Nitroglycerin (Nitro-Bid 2% Oint) 1 ea TOP Q6 [facility] Last Admin: 09/05/16 05:48 Dose: 1 ea Pantoprazole Sodium (Protonix Inj) 40 mg IVP DAILY [facility] Last Admin: 09/05/16 09:24 Dose: 40 mg Potassium Chloride (Klor-Con 10) 10 meq PO ACB [facility] Last Admin: 09/05/16 07:08 Dose: 10 meq - Labs Labs: 09/04/16 13:54 09/04/16 13:54 - Constitutional Appears: Non-toxic, No Acute Distress - Head Exam Head Exam: ATRAUMATIC, NORMAL INSPECTION - Eye Exam Eye Exam: EOMI, Normal appearance - Respiratory Exam Respiratory Exam: NORMAL BREATHING PATTERN. absent: Respiratory Distress - Cardiovascular Exam Cardiovascular Exam: +S1, +S2 - GI/Abdominal Exam GI & Abdominal Exam: Soft. absent: Distended, Firm, Guarding, Rigid, Tenderness , Rebound - Neurological Exam Neurological Exam: Alert, Awake, Oriented x3 - Psychiatric Exam Psychiatric exam: Normal Affect, Normal Mood - Skin Skin Exam: Dry, Normal Color, Warm Assessment and Plan - Assessment and Plan (Free Text) Assessment: 71yo F with small bowel obstruction, resolved - Afebrile, VSS - Tolerating full liquid diet - Clear for discharge home from surgical standpoint - Discussed plan with Dr. Josué Crowell PGY-2 <Jesse Moses - Last Filed: 09/05/16 19:25> Objective - Vital Signs/Intake and Output Vital Signs (last 24 hours): Temp Pulse Resp BP Pulse Ox 98.5 F 74 18 147/83 98 09/05/16 07:30 09/05/16 08:00 09/05/16 07:30 09/05/16 07:30 09/05/16 07:30 - Labs Labs: 09/05/16 14:25 09/05/16 14:25 Attending/Attestation - Attestation I have personally seen and examined this patient.: Yes I have fully participated in the care of the patient.: Yes I have reviewed all pertinent clinical information, including history, physical exam and plan: Yes Notes (Text): 09/05/16 19:24 Pt was seen and examined at bedside on 09/05/16 Agree with above note and assessment Pt with resolved PSBO Pt can be DC home on thick liquid diet Plan d.w pt in detail. F/U as out pt
[2016-09-05 14:33] LABS: BASO % 0.3 % (0.0-2.0); EOS # 0.1 K/uL (0.0-0.7); EOS % 1.2 % (0.0-4.0); HEMATOCRIT 41.3 % (34.0-47.0); LYMPH # 0.6 K/uL (1.0-4.3); LYMPH % 13.6 % (20.0-40.0); MEAN CELL VOLUME 98.1 fL (81.0-99.0); MEAN CORPUSCULAR HEMOGLOBIN 33.8 pg (27.0-31.0); MEAN CORPUSCULAR HGB CONC 34.4 g/dL (33.0-37.0); MEAN PLATELET VOLUME 8.6 fL (7.2-11.7); MONO # 0.4 K/uL (0.0-0.8); MONO % 8.9 % (0.0-10.0); NRBC % 0.1 % (0.0-2.0); RED CELL DISTRIBUTION WIDTH 13.1 % (11.5-14.5); WHITE BLOOD COUNT 4.5 K/uL (4.8-10.8)
[2016-09-05 14:44] LABS: POTASSIUM 3.9 mmol/L (3.6-5.2)
[2016-09-05 14:47] LABS: ALB/GLOB RATIO 0.9 (1.0-2.1); BILIRUBIN,TOTAL 0.8 mg/dL (0.2-1.3); TOTAL PROTEIN 7.3 g/dL (6.3-8.3)
[2016-09-05 14:48] LABS: CALCIUM 8.9 mg/dl (8.6-10.4)
--- NOTE | 2016-09-07 20:51 | CARD ---
APPROVED REPORT EKG Measurement Heart [id number] <Conclusion> Sinus rhythm with premature supraventricular complexes Otherwise normal ECG
== END 2016-09-05 14:14 | disposition home or self-care (01) | DRG 389 ==
LOC: C.ER 17:17 → C.9OBSV 17:45 → UNDOADMOB 17:45 → C.9E 21:45 → OBSVTOIN 21:45 → INTOOBSV 21:45 → C.9OBSV 21:45 → C.9E 21:45 → C.3T 22:33 → C.9E 23:43 → C.6T 23:58
PROVIDERS: ADMIT Internal Medicine Nephrology; ATTEND Internal Medicine Nephrology
DX: K56.5 Intestinal adhesions [bands] with obstruction (postinfection) (principal); N39.0 Urinary tract infection, site not specified; K92.2 Gastrointestinal hemorrhage, unspecified; Z96.659 Presence of unspecified artificial knee joint; Z90.710 Acquired absence of both cervix and uterus; N39.3 Stress incontinence (female) (male); Z80.49 Family history of malignant neoplasm of other genital organs